=== PATIENT | male | born 1940 | race Caucasian/White ===

== ENCOUNTER 2023-03-29 12:56 | Inpatient (IN) | payer MEDICARE, BC ==
[~2023-03-29] VITALS: Ht 172.7 cm; Wt 70.8 kg
[2023-03-29] MEDS ORDERED: ESCI20TA PO (13:14)
[2023-03-29] MEDS ORDERED: CARV12.52 PO (13:14)
[2023-03-29] MEDS ORDERED: L. A1TAB16 PO (13:14)
[2023-03-29] MEDS ORDERED: ASPI81TA31 PO (13:14)
[2023-03-29] MEDS ORDERED: ACET-73 PO ×2 (13:14→13:42)
[2023-03-29] MEDS ORDERED: EMPA10TA PO (13:14)
[2023-03-29] MEDS ORDERED: CLOP75TA15 PO (13:14)
[2023-03-29] MEDS ORDERED: SITA50TA PO (13:14)
[2023-03-29] MEDS ORDERED: BUSP10TA3 PO (13:14)
[2023-03-29] MEDS ORDERED: AMLO-212 PO (13:14)
[2023-03-29] MEDS ORDERED: BICA50TA49 PO (13:14)
[2023-03-29] MEDS ORDERED: MULT-981 PO (13:14)
[2023-03-29] MEDS ORDERED: EZET10TA15 PO (13:14)
[2023-03-29] MEDS: HYDROMORPHONE 1 MG/1 ML DISP.SYRIN IV ONE (13:15)
[2023-03-29] MEDS ORDERED: ONDANSETRON 4 MG/2 ML VIAL IV ONE (13:15)
[2023-03-29 13:26] LABS: BASOPHILS # (AUTO) 0.1 K/UL (0.0-0.2); BASOPHILS % (AUTO) 1.4 % (0.0-2.0); EOSINOPHILS # (AUTO) 0.5 K/uL (0.0-0.7); EOSINOPHILS % (AUTO) 9.3 % (0.0-7.0); HEMATOCRIT 31.3 % (36.7-47.1); HEMOGLOBIN 10.5 g/dL (12.5-16.3); LYMPHOCYTES % (AUTO) 17.1 % (20.5-51.5); MEAN CORPUSCULAR HEMOGLOBIN 28.7 uug (23.8-33.4); MEAN CORPUSCULAR HGB CONC 33 g/dL (32.5-36.3); MONOCYTES # (AUTO) 0.5 K/uL (0.1-1.30); MONOCYTES % (AUTO) 8.4 % (0.0-11.0); NEUTROPHILS # (AUTO) 3.5 K/uL (1.8-8.9); NEUTROPHILS % (AUTO) 63.8 % (38.5-71.5); PLATELET COUNT (AUTO) 239 K/uL (152-348); RED BLOOD CELL COUNT(AUTO) 3.64 MIL/uL (4.06-5.63); RED CELL DISTRIBUTION WIDTH 14.6 % (12.1-16.2); WHITE BLOOD COUNT (AUTO) 5.6 K/uL (3.6-10.2)
[2023-03-29] MEDS ORDERED: ONDANSETRON 4 MG/2 ML VIAL ONE (13:28)
[2023-03-29] MEDS ORDERED: HYDROMORPHONE 1 MG/1 ML DISP.SYRIN ONE (13:28)
[2023-03-29 13:40] LABS: CARBON DIOXIDE 20 mmol/L (21-32); CHLORIDE 103 mmol/L (98-107); GLUCOSE 126 mg/dL (74-106); POTASSIUM 5.6 mmol/L (3.5-5.1); SODIUM SERUM 138 mmol/L (136-145); UREA NITROGEN, BLOOD 54 mg/dL (7-18)
[2023-03-29] MEDS ORDERED: MELA3CAP2 PO (13:42)
[2023-03-29] MEDS ORDERED: LISI10TA29 PO (13:42)
[2023-03-29] MEDS ORDERED: HYDR-3972 PO (13:42)
[2023-03-29] MEDS ORDERED: METF-442 PO (13:42)
[2023-03-29] MEDS ORDERED: ROSU20TA2 PO (13:42)
[2023-03-29] MEDS ORDERED: HYDR30OI12 TP (13:42)
[2023-03-29] MEDS ORDERED: OXYB15TA19 PO (13:42)
[2023-03-29] MEDS ORDERED: ONDA4TAB11 PO (13:42)
[2023-03-29] MEDS ORDERED: ASCO500C18 PO (13:42)
[2023-03-29] MEDS ORDERED: TRAZ-182 PO (13:42)
[2023-03-29] MEDS ORDERED: ZINC1CAP2 PO (13:42)
[2023-03-29] MEDS ORDERED: TRAZ-257 PO (13:42)
[2023-03-29] MEDS ORDERED: CYCL5TAB PO (13:42)
[2023-03-29] MEDS ORDERED: TAMS-3 PO (13:42)
[2023-03-29] MEDS ORDERED: POLY250017 PO (13:42)
[2023-03-29] MEDS ORDERED: IPRA0.2S48 NEB (13:42)
[2023-03-29] MEDS ORDERED: QUET25TA PO (13:42)
[2023-03-29 13:49] LABS: ALANINE AMINOTRANSFERASE 25 U/L (16-63); ALBUMIN 3.8 g/dL (3.4-5.0); ALKALINE PHOSPHATASE 116 U/L (50-136); ASPARTATE AMINOTRANSFERASE 13 U/L (15-37); BILIRUBIN,DIRECT 0.1 mg/dL (0.0-0.2); BILIRUBIN,TOTAL 0.2 mg/dL (0.2-1.0); LIPASE 24 U/L (16-77); TOTAL PROTEIN, SERUM 7.4 g/dL (6.4-8.2)
[2023-03-29] MEDS ORDERED: SODIUM POLYSTYRENE SULFONATE 15 G/60 ML LIQUID UDC PO ONE (14:15)
[2023-03-29] MEDS ORDERED: ALBUTEROL SULFATE 2.5 MG/3 ML NEBU NEB ONE (14:15)
[2023-03-29] MEDS ORDERED: DEXTROSE 50% 50 ML DISP.SYRIN IV ONE (14:15)
[2023-03-29] MEDS ORDERED: SODIUM BICARBONATE 8.4% 50 MEQ/50 ML DISP.SYRIN IV ONE ×2 (14:15→23:23)
[2023-03-29] MEDS ORDERED: INSULIN REGULAR, HUMAN 300 UNIT/3 ML VIAL IV ONE (14:15)
[2023-03-29] MEDS ORDERED: ALBUTEROL SULFATE 2.5 MG/3 ML NEBU ONE (14:18)
[2023-03-29 14:26] VITALS: O2SAT 96
[2023-03-29 15:29] VITALS: O2SAT 99
[2023-03-29] MEDS ORDERED: ONDANSETRON 4 MG/2 ML VIAL IV PRN (16:00)
[2023-03-29] MEDS ORDERED: ACETAMINOPHEN 325 MG TABLET PO PRN (16:00)
[2023-03-29] MEDS ORDERED: MORPHINE SULFATE 2 MG/1 ML DISP.SYRIN IV PRN (16:00)
[2023-03-29] MEDS ORDERED: IV NS 1000 ML 1,000 ML IV PRN (16:00)
[2023-03-29 16:07] LABS: CALCIUM 9.6 mg/dL (8.5-10.1); CARBON DIOXIDE 20 mmol/L (21-32); CHLORIDE 104 mmol/L (98-107); GLUCOSE 126 mg/dL (74-106); POTASSIUM 5.7 mmol/L (3.5-5.1); SODIUM SERUM 138 mmol/L (136-145); UREA NITROGEN, BLOOD 52 mg/dL (7-18)
[2023-03-29] MEDS ORDERED: HYDROMORPHONE 1 MG/1 ML DISP.SYRIN IV ONE (16:15)
[2023-03-29] MEDS ORDERED: diphenhydrAMINE 50 MG/1 ML VIAL IV ONE (16:15)
[2023-03-29] MEDS ORDERED: MORPHINE SULFATE 2 MG/1 ML DISP.SYRIN ONE (16:55)
[2023-03-29] MEDS ORDERED: DEXTROSE 50% 50 ML DISP.SYRIN IV PRN (17:30)
[2023-03-29] MEDS ORDERED: SODIUM BICARBONATE 8.4% 100 MEQ in IV D5 1/2 NS 1000 ML 1,000 ML IV PRN ×2 (17:30→23:00)
[2023-03-29 17:40] VITALS: BP 141/40; TEMP 98.2; O2SAT 98
[2023-03-29 18:21] LABS: CALCIUM 9.5 mg/dL (8.5-10.1); CARBON DIOXIDE 17 mmol/L (21-32); CHLORIDE 105 mmol/L (98-107); CREATININE 2.9 mg/dL (0.6-1.3); GLUCOSE 131 mg/dL (74-106); POTASSIUM 5.3 mmol/L (3.5-5.1); SODIUM SERUM 138 mmol/L (136-145); UREA NITROGEN, BLOOD 51 mg/dL (7-18)
[2023-03-29] MEDS: HYDROCODONE/APAP 5-325MG TABLET PO PRN ×2 (18:38→23:05)
[2023-03-29 18:53] VITALS: BP 140/71; TEMP 98.2
[2023-03-29 20:00] VITALS: BP 137/47; TEMP 97.7; O2SAT 97
[2023-03-29] MEDS: HEPARIN SODIUM,PORCINE 5,000 UNITS/ML VIAL SQ SCH (21:23)
[2023-03-29] MEDS: DOCUSATE SODIUM 250 MG CAPSULE PO SCH (21:23)
[2023-03-29] MEDS: BLOOD SUGAR DIAGNOSTIC 1 EACH STRIP VI SCH (21:35)
[2023-03-29] MEDS: INSULIN REGULAR, HUMAN 300 UNIT/3 ML VIAL SQ PRN (21:36)
[2023-03-29] MEDS ORDERED: TRAZODONE 50 MG TABLET PO SCH (22:15)
[2023-03-29] MEDS ORDERED: busPIRone 10 MG TABLET PO SCH (22:15)
[2023-03-29] MEDS: MELATONIN 3 MG TABLET PO SCH (22:19)
[2023-03-29 23:40] LABS: *BILIRUBIN,URIN NEGATIVE (NEGATIVE); *BLOOD, URINE NEGATIVE (NEGATIVE); *CLARITY,URINE CLEAR (CLEAR); *COLOR,URINE YELLOW (YELLOW); *KETONES,URINE 1+ (NEGATIVE); *PROTEIN,URINE NEGATIVE (NEGATIVE); *UROBILINOGEN,URINE 0.2 E.U./dl (NORMAL); LEUKOCYTE ESTERASE ,URINE NEGATIVE (NEGATIVE); NITRITE, URINE NEGATIVE (NEGATIVE); PH,URINE 5.5 (5.0-8.0)
[2023-03-29 23:46] LABS: *CREATININE,URINE 86.7 mg/dL (30-125); *URINE TOTAL PROTEIN RANDOM 29.2 mg/dL (<150/24HR)
[2023-03-29 23:48] LABS: UGLUCOSE 3+ (NEGATIVE)
[2023-03-30] VITALS (7 sets, daily range): BP systolic 106–135; BP diastolic 42–57; TEMP 97.7–98.5; O2SAT 93–100
[2023-03-30 01:17] LABS: BACTERIA,URINE FEW /HPF (NONE SEEN); RBC,URINE NONE SEEN /HPF (0-3); SQUAMOUS EPITHELIAL CELL,UR FEW /HPF (NONE SEEN); WBC,URINE NONE SEEN /HPF (0-3)
[2023-03-30] MEDS: BLOOD SUGAR DIAGNOSTIC 1 EACH STRIP VI SCH ×4 (06:35→21:15)
[2023-03-30 06:42] LABS: BASOPHILS # (AUTO) 0.1 K/UL (0.0-0.2); BASOPHILS % (AUTO) 1.4 % (0.0-2.0); EOSINOPHILS # (AUTO) 0.4 K/uL (0.0-0.7); EOSINOPHILS % (AUTO) 8.8 % (0.0-7.0); HEMATOCRIT 27.6 % (36.7-47.1); HEMOGLOBIN 9.3 g/dL (12.5-16.3); LYMPHOCYTES % (AUTO) 21.8 % (20.5-51.5); MEAN CORPUSCULAR HGB CONC 34 g/dL (32.5-36.3); MEAN CORPUSCULAR VOLUME 85.6 fL (73.0-96.2); MONOCYTES # (AUTO) 0.5 K/uL (0.1-1.30); MONOCYTES % (AUTO) 11.5 % (0.0-11.0); NEUTROPHILS # (AUTO) 2.5 K/uL (1.8-8.9); NEUTROPHILS % (AUTO) 56.5 % (38.5-71.5); PLATELET COUNT (AUTO) 214 K/uL (152-348); RED BLOOD CELL COUNT(AUTO) 3.22 MIL/uL (4.06-5.63); RED CELL DISTRIBUTION WIDTH 14.5 % (12.1-16.2); WHITE BLOOD COUNT (AUTO) 4.4 K/uL (3.6-10.2)
[2023-03-30 06:49] LABS: DIFFERENTIAL COMMENT 1
[2023-03-30 07:13] LABS: ALANINE AMINOTRANSFERASE 21 U/L (16-63); ALBUMIN 3.2 g/dL (3.4-5.0); ALKALINE PHOSPHATASE 97 U/L (50-136); ASPARTATE AMINOTRANSFERASE 14 U/L (15-37); BILIRUBIN,TOTAL 0.2 mg/dL (0.2-1.0); CARBON DIOXIDE 23 mmol/L (21-32); CHLORIDE 106 mmol/L (98-107); CHOLESTEROL 81 mg/dL (<200); CREATININE 2.8 mg/dL (0.6-1.3); GLUCOSE 154 mg/dL (74-106); HDL CHOLESTEROL 35 mg/dL (40-60); MAGNESIUM 2.4 mg/dL (1.8-2.4); PHOSPHOROUS 5.2 mg/dL (2.5-4.9); POTASSIUM 5.1 mmol/L (3.5-5.1); SODIUM SERUM 140 mmol/L (136-145); TOTAL PROTEIN, SERUM 6.6 g/dL (6.4-8.2); TRIGLYCERIDES 190 MG/DL (30-150); UREA NITROGEN, BLOOD 49 mg/dL (7-18)
[2023-03-30 07:29] LABS: CREATINE KINASE, TOTAL 67 U/L (39-308)
[2023-03-30] MEDS: IPRATROPIUM BROMIDE 0.5 MG/2.5 ML NEBU NEB SCH ×3 (07:30→20:40)
[2023-03-30] MEDS: CARVEDILOL 12.5 MG TABLET PO SCH ×2 (08:00→17:27)
[2023-03-30] MEDS: HYDROCODONE/APAP 5-325MG TABLET PO PRN ×5 (08:44→23:43)
[2023-03-30] MEDS ORDERED: busPIRone 10 MG TABLET PO SCH (09:00)
[2023-03-30] MEDS ORDERED: busPIRone 10 MG TABLET PO ONE (09:00)
[2023-03-30] MEDS ORDERED: TRAZODONE 50 MG TABLET PO SCH (09:00)
[2023-03-30] MEDS: AMLODIPINE 5 MG TABLET PO SCH (09:00)
[2023-03-30] MEDS: LISINOPRIL 10 MG TABLET PO SCH (09:00)
[2023-03-30] MEDS: ASPIRIN 81 MG TAB.CHEW PO SCH (09:11)
[2023-03-30] MEDS: EZETIMIBE 10 MG TABLET PO SCH (09:12)
[2023-03-30] MEDS: MULTIVIT, IRON, MIN NO. 8, FA TABLET PO SCH (09:12)
[2023-03-30] MEDS: ESCITALOPRAM OXALATE 10 MG TABLET PO SCH (09:12)
[2023-03-30] MEDS: CLOPIDOGREL 75 MG TABLET PO SCH (09:13)
[2023-03-30] MEDS: HEPARIN SODIUM,PORCINE 5,000 UNITS/ML VIAL SQ SCH ×2 (09:14→21:10)
[2023-03-30] MEDS: ASCORBIC ACID 500 MG TABLET PO SCH (09:17)
[2023-03-30] MEDS: BICALUTAMIDE 50 MG TABLET PO SCH (09:22)
[2023-03-30] MEDS ORDERED: TRAZ-257 PO (10:31)
[2023-03-30] MEDS: ZINC SULFATE 220 MG CAPSULE PO SCH (11:00)
[2023-03-30] MEDS: OXYBUTYNIN XL 5 MG TABSR PO SCH (12:33)
[2023-03-30] MEDS: busPIRone 10 MG TABLET PO SCH ×2 (12:33→16:10)
[2023-03-30] MEDS: TRAZODONE 100 MG TABLET PO SCH ×2 (12:34→16:09)
[2023-03-30] MEDS: IV NS 1000 ML 1,000 ML IV PRN (12:34)
[2023-03-30] MEDS: INSULIN REGULAR, HUMAN 300 UNIT/3 ML VIAL SQ PRN ×2 (12:36→21:16)
[2023-03-30] MEDS ORDERED: MELATONIN 3 MG TABLET PO SCH (21:00)
[2023-03-30] MEDS: TAMSULOSIN HCL 0.4 MG CAP.SR.24H PO SCH (21:06)
[2023-03-30] MEDS: DOCUSATE SODIUM 250 MG CAPSULE PO SCH (21:06)
[2023-03-30] MEDS: ATORVASTATIN 20 MG TABLET PO SCH (21:06)
[2023-03-30] MEDS: MELATONIN 3 MG TABLET PO SCH (21:07)
[2023-03-31 00:12] VITALS: BP 117/36; TEMP 98; O2SAT 94
[2023-03-31] MEDS: IPRATROPIUM BROMIDE 0.5 MG/2.5 ML NEBU NEB SCH ×4 (01:30→19:30)
[2023-03-31 04:10] VITALS: BP 154/66; TEMP 97.8; O2SAT 97
[2023-03-31 06:26] LABS: BASOPHILS # (AUTO) 0.1 K/UL (0.0-0.2); BASOPHILS % (AUTO) 1.4 % (0.0-2.0); EOSINOPHILS # (AUTO) 0.3 K/uL (0.0-0.7); EOSINOPHILS % (AUTO) 8.7 % (0.0-7.0); HEMATOCRIT 27.5 % (36.7-47.1); HEMOGLOBIN 9.2 g/dL (12.5-16.3); LYMPHOCYTES % (AUTO) 25.8 % (20.5-51.5); MEAN CORPUSCULAR HEMOGLOBIN 28.9 uug (23.8-33.4); MEAN CORPUSCULAR HGB CONC 34 g/dL (32.5-36.3); MEAN CORPUSCULAR VOLUME 86.2 fL (73.0-96.2); MONOCYTES # (AUTO) 0.5 K/uL (0.1-1.30); MONOCYTES % (AUTO) 13.2 % (0.0-11.0); NEUTROPHILS % (AUTO) 50.9 % (38.5-71.5); PLATELET COUNT (AUTO) 214 K/uL (152-348); RED BLOOD CELL COUNT(AUTO) 3.19 MIL/uL (4.06-5.63); RED CELL DISTRIBUTION WIDTH 14.4 % (12.1-16.2); WHITE BLOOD COUNT (AUTO) 3.9 K/uL (3.6-10.2)
[2023-03-31 06:27] LABS: DIFFERENTIAL COMMENT 1
[2023-03-31] MEDS: BLOOD SUGAR DIAGNOSTIC 1 EACH STRIP VI SCH ×4 (06:33→20:37)
[2023-03-31 06:37] LABS: CALCIUM 9.6 mg/dL (8.5-10.1); CARBON DIOXIDE 23 mmol/L (21-32); CHLORIDE 107 mmol/L (98-107); CREATININE 2.1 mg/dL (0.6-1.3); GLUCOSE 116 mg/dL (74-106); MAGNESIUM 2.3 mg/dL (1.8-2.4); PHOSPHOROUS 4.9 mg/dL (2.5-4.9); POTASSIUM 4.7 mmol/L (3.5-5.1); SODIUM SERUM 142 mmol/L (136-145); UREA NITROGEN, BLOOD 36 mg/dL (7-18)
[2023-03-31] MEDS: OXYBUTYNIN XL 5 MG TABSR PO SCH (08:42)
[2023-03-31] MEDS: TRAZODONE 100 MG TABLET PO SCH ×2 (08:43→16:29)
[2023-03-31] MEDS: ASCORBIC ACID 500 MG TABLET PO SCH (08:43)
[2023-03-31] MEDS: ESCITALOPRAM OXALATE 10 MG TABLET PO SCH (08:43)
[2023-03-31] MEDS: CLOPIDOGREL 75 MG TABLET PO SCH (08:43)
[2023-03-31] MEDS: EZETIMIBE 10 MG TABLET PO SCH (08:43)
[2023-03-31] MEDS: ZINC SULFATE 220 MG CAPSULE PO SCH (08:43)
[2023-03-31] MEDS: MULTIVIT, IRON, MIN NO. 8, FA TABLET PO SCH (08:43)
[2023-03-31] MEDS: ASPIRIN 81 MG TAB.CHEW PO SCH (08:43)
[2023-03-31] MEDS: LISINOPRIL 10 MG TABLET PO SCH (08:44)
[2023-03-31] MEDS: busPIRone 10 MG TABLET PO SCH ×3 (08:44→16:29)
[2023-03-31] MEDS: AMLODIPINE 5 MG TABLET PO SCH (08:44)
[2023-03-31] MEDS: HEPARIN SODIUM,PORCINE 5,000 UNITS/ML VIAL SQ SCH ×2 (08:45→20:27)
[2023-03-31] MEDS: CARVEDILOL 12.5 MG TABLET PO SCH ×2 (08:45→17:01)
[2023-03-31] MEDS: BICALUTAMIDE 50 MG TABLET PO SCH (08:48)
[2023-03-31] MEDS: HYDROCODONE/APAP 5-325MG TABLET PO PRN ×4 (09:53→22:39)
[2023-03-31 11:53] VITALS: BP 131/87; TEMP 97.6; O2SAT 99
[2023-03-31] MEDS: INSULIN REGULAR, HUMAN 300 UNIT/3 ML VIAL SQ PRN ×3 (12:21→20:38)
[2023-03-31] MEDS: IV NS 1000 ML 1,000 ML IV PRN (15:49)
[2023-03-31 16:38] VITALS: BP 110/48; TEMP 98; O2SAT 99
[2023-03-31 20:16] VITALS: BP 106/53; TEMP 98.7; O2SAT 95
[2023-03-31 20:21] VITALS: O2SAT 98
[2023-03-31] MEDS: ATORVASTATIN 20 MG TABLET PO SCH (20:26)
[2023-03-31] MEDS: TAMSULOSIN HCL 0.4 MG CAP.SR.24H PO SCH (20:26)
[2023-03-31] MEDS: MELATONIN 3 MG TABLET PO SCH (20:28)
[2023-03-31] MEDS: DOCUSATE SODIUM 250 MG CAPSULE PO SCH (20:54)
[2023-04-01 00:02] VITALS: BP 117/44; TEMP 97.6; O2SAT 95
[2023-04-01 01:03] VITALS: O2SAT 98
[2023-04-01] MEDS: IPRATROPIUM BROMIDE 0.5 MG/2.5 ML NEBU NEB SCH ×3 (01:30→13:30)
[2023-04-01 04:19] VITALS: BP 135/63; TEMP 97.6; O2SAT 93
[2023-04-01] MEDS: HYDROCODONE/APAP 5-325MG TABLET PO PRN ×3 (06:41→16:31)
[2023-04-01] MEDS: BLOOD SUGAR DIAGNOSTIC 1 EACH STRIP VI SCH ×3 (06:42→16:23)
[2023-04-01 07:08] LABS: BASOPHILS # (AUTO) 0.1 K/UL (0.0-0.2); BASOPHILS % (AUTO) 1.4 % (0.0-2.0); EOSINOPHILS # (AUTO) 0.3 K/uL (0.0-0.7); EOSINOPHILS % (AUTO) 6.5 % (0.0-7.0); HEMATOCRIT 27.1 % (36.7-47.1); HEMOGLOBIN 9.1 g/dL (12.5-16.3); LYMPHOCYTES # (AUTO) 1.2 K/uL (0.8-4.8); LYMPHOCYTES % (AUTO) 27.8 % (20.5-51.5); MEAN CORPUSCULAR HGB CONC 34 g/dL (32.5-36.3); MEAN CORPUSCULAR VOLUME 86.2 fL (73.0-96.2); MONOCYTES # (AUTO) 0.5 K/uL (0.1-1.30); MONOCYTES % (AUTO) 11.8 % (0.0-11.0); NEUTROPHILS # (AUTO) 2.2 K/uL (1.8-8.9); NEUTROPHILS % (AUTO) 52.5 % (38.5-71.5); PLATELET COUNT (AUTO) 220 K/uL (152-348); RED BLOOD CELL COUNT(AUTO) 3.14 MIL/uL (4.06-5.63); RED CELL DISTRIBUTION WIDTH 14.8 % (12.1-16.2); WHITE BLOOD COUNT (AUTO) 4.2 K/uL (3.6-10.2)
[2023-04-01 07:19] LABS: DIFFERENTIAL COMMENT 1
[2023-04-01 07:30] LABS: ALANINE AMINOTRANSFERASE 23 U/L (16-63); ALBUMIN 3.1 g/dL (3.4-5.0); ALKALINE PHOSPHATASE 96 U/L (50-136); ASPARTATE AMINOTRANSFERASE 18 U/L (15-37); BILIRUBIN,TOTAL 0.2 mg/dL (0.2-1.0); CALCIUM 9.4 mg/dL (8.5-10.1); CARBON DIOXIDE 24 mmol/L (21-32); CHLORIDE 108 mmol/L (98-107); CREATININE 2.1 mg/dL (0.6-1.3); GLUCOSE 154 mg/dL (74-106); MAGNESIUM 2.1 mg/dL (1.8-2.4); PHOSPHOROUS 4.5 mg/dL (2.5-4.9); POTASSIUM 4.5 mmol/L (3.5-5.1); SODIUM SERUM 141 mmol/L (136-145); TOTAL PROTEIN, SERUM 6.5 g/dL (6.4-8.2); UREA NITROGEN, BLOOD 27 mg/dL (7-18)
[2023-04-01] MEDS: INSULIN REGULAR, HUMAN 300 UNIT/3 ML VIAL SQ PRN ×3 (08:14→16:31)
[2023-04-01] MEDS: EZETIMIBE 10 MG TABLET PO SCH (08:34)
[2023-04-01] MEDS: ESCITALOPRAM OXALATE 10 MG TABLET PO SCH (08:34)
[2023-04-01] MEDS: ASCORBIC ACID 500 MG TABLET PO SCH (08:34)
[2023-04-01] MEDS: ASPIRIN 81 MG TAB.CHEW PO SCH (08:34)
[2023-04-01] MEDS: CLOPIDOGREL 75 MG TABLET PO SCH (08:34)
[2023-04-01] MEDS: ZINC SULFATE 220 MG CAPSULE PO SCH (08:34)
[2023-04-01] MEDS: busPIRone 10 MG TABLET PO SCH ×3 (08:34→16:31)
[2023-04-01] MEDS: MULTIVIT, IRON, MIN NO. 8, FA TABLET PO SCH (08:34)
[2023-04-01] MEDS: OXYBUTYNIN XL 5 MG TABSR PO SCH (08:34)
[2023-04-01] MEDS: CARVEDILOL 12.5 MG TABLET PO SCH ×2 (08:35→17:39)
[2023-04-01] MEDS: TRAZODONE 100 MG TABLET PO SCH ×2 (08:35→16:31)
[2023-04-01] MEDS: LISINOPRIL 10 MG TABLET PO SCH (08:35)
[2023-04-01] MEDS: AMLODIPINE 5 MG TABLET PO SCH (08:36)
[2023-04-01] MEDS: BICALUTAMIDE 50 MG TABLET PO SCH (08:45)
[2023-04-01] MEDS: HEPARIN SODIUM,PORCINE 5,000 UNITS/ML VIAL SQ SCH (08:47)
[2023-04-01] MEDS ORDERED: LACTULOSE 20 G/30 ML LIQUID UDC PO ONE (11:00)
[2023-04-01] MEDS ORDERED: DOCUSATE SODIUM 100 MG CAPSULE PO SCH (11:00)
[2023-04-01 11:15] VITALS: BP 113/49; TEMP 98; O2SAT 98
[2023-04-01 13:06] LABS: A/G RATIO 0.8 (0.7-1.7); ALBUMIN 2.7 g/dL (2.9-4.4); ALPHA-1-GLOBULIN 0.2 g/dL (0.0-0.4); BETA GLOBULIN 0.9 g/dL (0.7-1.3); GAMMA GLOBULIN 1.4 g/dL (0.4-1.8); GLOBULIN, TOTAL 3.5 g/dL (2.2-3.9); M-SPIKE Not Observed g/dL (Not Observed)
[2023-04-01 15:52] VITALS: BP 112/53; TEMP 98.1
[2023-04-01 16:06] LABS: PTH, INTACT 25 pg/mL (15-65)
[2023-04-01 17:39] VITALS: BP 115/61
[2023-04-01] MEDS: IV NS 1000 ML 1,000 ML IV PRN (17:39)
[2023-04-01] MEDS ORDERED: ATOR20TA PO (20:57)
[2023-04-01] MEDS ORDERED: NORM50IV2 IV (20:57)
[2023-04-01] MEDS ORDERED: INSU100V28 SQ (20:57)
[2023-04-01] MEDS ORDERED: HEPA50007 SQ (20:57)
[2023-04-01] MEDS ORDERED: DOCU100T2 PO (20:57)
[2023-04-01] MEDS ORDERED: MORP2VIA INJ (21:07)
[2023-04-02] MEDS ORDERED: OXYB5TAB29 PO (05:34)
[2023-04-02] MEDS ORDERED: MULT-1075 PO (05:34)
[2023-04-02] MEDS ORDERED: ONDA4TAB5 IV (05:34)
[2023-04-02] MEDS ORDERED: INSU100V28 SQ (05:34)
[2023-04-02] MEDS ORDERED: MORP10SY2 INJ (05:34)
[2023-04-02] MEDS ORDERED: MELA1TAB27 PO (13:23)
[2023-04-02] MEDS ORDERED: ACET-73 PO ×2 (13:23)
[2023-04-02] MEDS ORDERED: TIZA-180 PO (13:23)
[2023-04-02] MEDS ORDERED: IPRA3AMP23 IH (13:23)
[2023-04-02] MEDS ORDERED: SITA50TA PO (14:04)
[2023-04-02] MEDS ORDERED: DIPH35CR TP (14:39)
== END 2023-04-01 18:06 | DRG 682 ==
LOC: ER 12:56 → TELE3 14:20 → MEDSURG3 04-01 07:55
PROVIDERS: ADMIT Nurse Practitioner Acute Care; ATTEND Nurse Practitioner Acute Care
DX: N17.0 Acute kidney failure with tubular necrosis (principal); S72.124A Nondisplaced fracture of lesser trochanter of right femur, initial encounter for closed fracture; E87.20 Acidosis, unspecified; W19.XXXA Unspecified fall, initial encounter; Y92.89 Other specified places as the place of occurrence of the external cause; E11.22 Type 2 diabetes mellitus with diabetic chronic kidney disease; I12.9 Hypertensive chronic kidney disease with stage 1 through stage 4 chronic kidney disease, or unspecified chronic kidney disease; N18.9 Chronic kidney disease, unspecified; Z79.84 Long term (current) use of oral hypoglycemic drugs; Z96.641 Presence of right artificial hip joint; Z85.46 Personal history of malignant neoplasm of prostate; E87.5 Hyperkalemia; E78.5 Hyperlipidemia, unspecified; R00.1 Bradycardia, unspecified; Z79.899 Other long term (current) drug therapy; Z95.5 Presence of coronary angioplasty implant and graft; I25.10 Atherosclerotic heart disease of native coronary artery without angina pectoris; D64.9 Anemia, unspecified; Z74.09 Other reduced mobility; R29.6 Repeated falls; Z79.02 Long term (current) use of antithrombotics/antiplatelets; R53.1 Weakness
CPT/HCPCS: 36415; 71045; 72170; 73502; 76770; 83690; 83735; 83970; 84100; 84155; 84165; 84300; 84484; 85025; 85730; 86850; 86900; 86901; 93005; 93307; G0378; J1170; J1644; J1815; J2270; J2405; J3490; J3590; J7040

== ENCOUNTER 2023-04-01 18:07 | Inpatient (IN) | payer MEDICARE, BC ==
[~2023-04-01] VITALS: Ht 177.8 cm; Wt 70.8 kg
[~2023-04-01 18:07] MED LIST: ACET-73 PO; AMLO-212 PO; ASCO500C18 PO; ASPI81TA31 PO; BICA50TA49 PO; BUSP10TA3 PO; CARV12.52 PO; CLOP75TA15 PO; CYCL5TAB PO; EMPA10TA PO; ESCI20TA PO; EZET10TA15 PO; HYDR-3972 PO; HYDR30OI12 TP; IPRA0.2S48 NEB; L. A1TAB16 PO; LISI10TA29 PO; MELA3CAP2 PO; METF-442 PO; MULT-981 PO; ONDA4TAB11 PO; OXYB15TA19 PO; POLY250017 PO; QUET25TA PO; ROSU20TA2 PO; SITA50TA PO; TAMS-3 PO; TRAZ-257 PO; ZINC1CAP2 PO
[2023-04-01] MEDS ORDERED: REMEDY ESSENTIAL ZINC PASTE 113 GM TOP PRN (19:30)
[2023-04-01] MEDS ORDERED: HEPA50007 SQ (20:57)
[2023-04-01] MEDS ORDERED: INSU100V28 SQ (20:57)
[2023-04-01] MEDS ORDERED: ATOR20TA PO (20:57)
[2023-04-01] MEDS ORDERED: NORM50IV2 IV (20:57)
[2023-04-01] MEDS ORDERED: DOCU100T2 PO (20:57)
[2023-04-01] MEDS ORDERED: MORP2VIA INJ (21:07)
[2023-04-01 21:19] VITALS: BP 101/46; TEMP 98; O2SAT 94
[2023-04-01] MEDS ORDERED: QUETIAPINE FUMARATE 25 MG TABLET PO PRN (22:00)
[2023-04-01] MEDS ORDERED: MELATONIN 3 MG TABLET PO PRN (22:30)
[2023-04-01] MEDS: HYDROCODONE/APAP 5-325MG TABLET PO PRN (23:21)
[2023-04-02] MEDS ORDERED: IPRATROPIUM BROMIDE 0.5 MG/2.5 ML NEBU NEB SCH (01:30)
[2023-04-02 04:30] VITALS: BP 131/56; TEMP 97.9; O2SAT 95
[2023-04-02] MEDS ORDERED: HEPARIN SODIUM,PORCINE/PF 100 UNIT/ML, 5ML SYR XX PRN (04:45)
[2023-04-02] MEDS ORDERED: DEXTROSE 50% 50 ML DISP.SYRIN IV PRN (05:15)
[2023-04-02] MEDS ORDERED: ONDA4TAB5 IV (05:34)
[2023-04-02] MEDS ORDERED: INSU100V28 SQ (05:34)
[2023-04-02] MEDS ORDERED: MORP10SY2 INJ (05:34)
[2023-04-02] MEDS ORDERED: MULT-1075 PO (05:34)
[2023-04-02] MEDS ORDERED: OXYB5TAB29 PO (05:34)
[2023-04-02] MEDS ORDERED: IV NS 1000 ML 1,000 ML IV PRN (05:45)
[2023-04-02] MEDS ORDERED: QUETIAPINE FUMARATE 25 MG TABLET PO PRN (06:00)
[2023-04-02] MEDS: BLOOD SUGAR DIAGNOSTIC 1 EACH STRIP VI SCH ×4 (06:37→20:49)
[2023-04-02] MEDS: IPRATROPIUM BROMIDE 0.5 MG/2.5 ML NEBU NEB SCH ×3 (07:35→19:30)
[2023-04-02 07:50] VITALS: BP 142/51; TEMP 97.4; O2SAT 95
[2023-04-02] MEDS ORDERED: Empagliflozin (Jardiance) 10 MG) PO SCH (09:00)
[2023-04-02] MEDS ORDERED: HEPARIN SODIUM,PORCINE 5,000 UNITS/ML VIAL SQ SCH (09:00)
[2023-04-02] MEDS ORDERED: HYDROCORTISONE 1% OINT 28.35 GM TUBE TP SCH ×2 (09:00)
[2023-04-02] MEDS ORDERED: ESCITALOPRAM OXALATE 10 MG TABLET PO SCH (09:00)
[2023-04-02] MEDS: TRAZODONE 100 MG TABLET PO SCH ×2 (09:11→17:34)
[2023-04-02] MEDS: EZETIMIBE 10 MG TABLET PO SCH (09:11)
[2023-04-02] MEDS: ESCITALOPRAM OXALATE 10 MG TABLET PO SCH (09:11)
[2023-04-02] MEDS: HYDROCODONE/APAP 5-325MG TABLET PO PRN ×4 (09:12→22:01)
[2023-04-02] MEDS: ASPIRIN 81 MG TAB.CHEW PO SCH (09:12)
[2023-04-02] MEDS: AMLODIPINE 5 MG TABLET PO SCH (09:13)
[2023-04-02] MEDS: busPIRone 10 MG TABLET PO SCH ×3 (09:13→17:34)
[2023-04-02] MEDS: CLOPIDOGREL 75 MG TABLET PO SCH (09:13)
[2023-04-02] MEDS: ZINC SULFATE 220 MG CAPSULE PO SCH (09:13)
[2023-04-02] MEDS: ASCORBIC ACID 500 MG TABLET PO SCH (09:13)
[2023-04-02] MEDS: DOCUSATE SODIUM 100 MG CAPSULE PO SCH ×2 (09:13→20:48)
[2023-04-02] MEDS: LINAGLIPTIN 5 MG TABLET PO SCH (09:13)
[2023-04-02] MEDS: BICALUTAMIDE 50 MG TABLET PO SCH (09:23)
[2023-04-02] MEDS: INSULIN REGULAR, HUMAN 300 UNIT/3 ML VIAL SQ PRN ×3 (09:24→20:53)
[2023-04-02] MEDS: LISINOPRIL 10 MG TABLET PO SCH (12:27)
[2023-04-02] MEDS: CARVEDILOL 12.5 MG TABLET PO SCH ×2 (12:30→17:34)
[2023-04-02] MEDS ORDERED: ACET-73 PO ×2 (13:23)
[2023-04-02] MEDS ORDERED: MELA1TAB27 PO (13:23)
[2023-04-02] MEDS ORDERED: IPRA3AMP23 IH (13:23)
[2023-04-02] MEDS ORDERED: TIZA-180 PO (13:23)
[2023-04-02] MEDS ORDERED: SITA50TA PO (14:04)
[2023-04-02 14:20] LABS: *BILIRUBIN,URIN NEGATIVE (NEGATIVE); *BLOOD, URINE 3+ (NEGATIVE); *CLARITY,URINE CLEAR (CLEAR); *COLOR,URINE YELLOW (YELLOW); *KETONES,URINE NEGATIVE (NEGATIVE); *PROTEIN,URINE 1+ (NEGATIVE); *UROBILINOGEN,URINE 0.2 E.U./dl (NORMAL); LEUKOCYTE ESTERASE ,URINE NEGATIVE (NEGATIVE); NITRITE, URINE NEGATIVE (NEGATIVE); PH,URINE 6.5 (5.0-8.0)
[2023-04-02] MEDS ORDERED: DIPH35CR TP (14:39)
[2023-04-02 14:45] LABS: UGLUCOSE 2+ (NEGATIVE)
[2023-04-02 15:00] VITALS: BP 113/54; TEMP 97.2; O2SAT 98
[2023-04-02 15:52] LABS: RBC,URINE 80-100 /HPF (0-3); WBC,URINE 0-3 /HPF (0-3)
[2023-04-02 20:19] VITALS: BP 92/42; TEMP 98.4; O2SAT 94
[2023-04-02] MEDS: TAMSULOSIN HCL 0.4 MG CAP.SR.24H PO SCH (20:48)
[2023-04-02] MEDS ORDERED: ATORVASTATIN 20 MG TABLET PO SCH (21:00)
[2023-04-02] MEDS: MELATONIN 3 MG TABLET PO PRN (22:00)
[2023-04-02 23:00] VITALS: BP 99/41; TEMP 98.2; O2SAT 93
[2023-04-03] MEDS: IPRATROPIUM BROMIDE 0.5 MG/2.5 ML NEBU NEB SCH ×4 (01:30→19:33)
[2023-04-03 05:14] VITALS: BP 111/46; TEMP 97.8; O2SAT 93
[2023-04-03 06:15] LABS: BASOPHILS # (AUTO) 0.1 K/UL (0.0-0.2); BASOPHILS % (AUTO) 1.2 % (0.0-2.0); EOSINOPHILS # (AUTO) 0.3 K/uL (0.0-0.7); HEMATOCRIT 27.1 % (36.7-47.1); HEMOGLOBIN 9.1 g/dL (12.5-16.3); LYMPHOCYTES # (AUTO) 1.1 K/uL (0.8-4.8); LYMPHOCYTES % (AUTO) 20.2 % (20.5-51.5); MEAN CORPUSCULAR HEMOGLOBIN 29.1 uug (23.8-33.4); MEAN CORPUSCULAR HGB CONC 34 g/dL (32.5-36.3); MEAN CORPUSCULAR VOLUME 86.5 fL (73.0-96.2); MONOCYTES # (AUTO) 0.6 K/uL (0.1-1.30); MONOCYTES % (AUTO) 11.1 % (0.0-11.0); NEUTROPHILS # (AUTO) 3.3 K/uL (1.8-8.9); NEUTROPHILS % (AUTO) 61.5 % (38.5-71.5); PLATELET COUNT (AUTO) 216 K/uL (152-348); RED BLOOD CELL COUNT(AUTO) 3.13 MIL/uL (4.06-5.63); RED CELL DISTRIBUTION WIDTH 14.5 % (12.1-16.2); WHITE BLOOD COUNT (AUTO) 5.4 K/uL (3.6-10.2)
[2023-04-03 06:49] LABS: DIFFERENTIAL COMMENT 1
[2023-04-03 07:07] LABS: THYROID STIMULATING HORMONE 0.012 mIU/mL (0.358-3.740)
[2023-04-03] MEDS: BLOOD SUGAR DIAGNOSTIC 1 EACH STRIP VI SCH ×4 (07:25→21:59)
[2023-04-03 07:35] VITALS: BP 148/66; TEMP 97.6; O2SAT 94
[2023-04-03 07:42] LABS: ALANINE AMINOTRANSFERASE 35 U/L (16-63); ALBUMIN 3.1 g/dL (3.4-5.0); ALKALINE PHOSPHATASE 102 U/L (50-136); ASPARTATE AMINOTRANSFERASE 29 U/L (15-37); BILIRUBIN,TOTAL 0.4 mg/dL (0.2-1.0); CALCIUM 9.3 mg/dL (8.5-10.1); CARBON DIOXIDE 23 mmol/L (21-32); CHLORIDE 108 mmol/L (98-107); GLUCOSE 144 mg/dL (74-106); MAGNESIUM 2.1 mg/dL (1.8-2.4); PHOSPHOROUS 4.9 mg/dL (2.5-4.9); POTASSIUM 4.4 mmol/L (3.5-5.1); SODIUM SERUM 141 mmol/L (136-145); TOTAL PROTEIN, SERUM 6.3 g/dL (6.4-8.2); UREA NITROGEN, BLOOD 22 mg/dL (7-18)
[2023-04-03] MEDS: INSULIN REGULAR, HUMAN 300 UNIT/3 ML VIAL SQ PRN ×4 (09:07→22:02)
[2023-04-03] MEDS: BICALUTAMIDE 50 MG TABLET PO SCH (09:08)
[2023-04-03] MEDS: TRAZODONE 100 MG TABLET PO SCH ×2 (09:09→17:15)
[2023-04-03] MEDS: LINAGLIPTIN 5 MG TABLET PO SCH (09:09)
[2023-04-03] MEDS: HYDROCODONE/APAP 5-325MG TABLET PO PRN ×4 (09:09→21:21)
[2023-04-03] MEDS: ASPIRIN 81 MG TAB.CHEW PO SCH (09:09)
[2023-04-03] MEDS: ESCITALOPRAM OXALATE 10 MG TABLET PO SCH (09:09)
[2023-04-03] MEDS: DOCUSATE SODIUM 100 MG CAPSULE PO SCH ×2 (09:09→21:20)
[2023-04-03] MEDS: busPIRone 10 MG TABLET PO SCH ×3 (09:10→17:14)
[2023-04-03] MEDS: ZINC SULFATE 220 MG CAPSULE PO SCH (09:10)
[2023-04-03] MEDS: ASCORBIC ACID 500 MG TABLET PO SCH (09:10)
[2023-04-03] MEDS: CLOPIDOGREL 75 MG TABLET PO SCH (09:10)
[2023-04-03] MEDS: EZETIMIBE 10 MG TABLET PO SCH (09:10)
[2023-04-03] MEDS: AMLODIPINE 5 MG TABLET PO SCH (09:11)
[2023-04-03] MEDS: LISINOPRIL 10 MG TABLET PO SCH (09:11)
[2023-04-03 09:40] LABS: IRON, SERUM 56 ug/dL (50-175)
[2023-04-03] MEDS: CARVEDILOL 12.5 MG TABLET PO SCH ×2 (12:23→17:15)
[2023-04-03 15:15] VITALS: BP 122/56; TEMP 98.4; O2SAT 96
[2023-04-03 20:00] VITALS: BP 109/47; TEMP 97.3; O2SAT 93
[2023-04-03] MEDS: TAMSULOSIN HCL 0.4 MG CAP.SR.24H PO SCH (21:21)
[2023-04-04] MEDS: MELATONIN 3 MG TABLET PO PRN ×2 (00:48→21:57)
[2023-04-04] MEDS: IPRATROPIUM BROMIDE 0.5 MG/2.5 ML NEBU NEB SCH ×4 (01:30→19:30)
[2023-04-04 05:23] VITALS: BP 140/49; TEMP 97.5; O2SAT 94
[2023-04-04] MEDS: BLOOD SUGAR DIAGNOSTIC 1 EACH STRIP VI SCH ×4 (06:57→21:50)
[2023-04-04 07:58] VITALS: BP 129/51; TEMP 97.5; O2SAT 94
[2023-04-04] MEDS: LINAGLIPTIN 5 MG TABLET PO SCH (08:05)
[2023-04-04] MEDS: INSULIN REGULAR, HUMAN 300 UNIT/3 ML VIAL SQ PRN ×3 (08:05→21:53)
[2023-04-04] MEDS: busPIRone 10 MG TABLET PO SCH ×3 (08:06→16:31)
[2023-04-04] MEDS: EZETIMIBE 10 MG TABLET PO SCH (08:06)
[2023-04-04] MEDS: DOCUSATE SODIUM 100 MG CAPSULE PO SCH ×2 (08:06→21:12)
[2023-04-04] MEDS: ASPIRIN 81 MG TAB.CHEW PO SCH (08:06)
[2023-04-04] MEDS: CLOPIDOGREL 75 MG TABLET PO SCH (08:06)
[2023-04-04] MEDS: ASCORBIC ACID 500 MG TABLET PO SCH (08:06)
[2023-04-04] MEDS: AMLODIPINE 5 MG TABLET PO SCH (08:06)
[2023-04-04] MEDS: CARVEDILOL 12.5 MG TABLET PO SCH ×2 (08:06→17:35)
[2023-04-04] MEDS: ESCITALOPRAM OXALATE 10 MG TABLET PO SCH (08:06)
[2023-04-04] MEDS: ZINC SULFATE 220 MG CAPSULE PO SCH (08:06)
[2023-04-04] MEDS: TRAZODONE 100 MG TABLET PO SCH ×2 (08:06→16:31)
[2023-04-04] MEDS: LISINOPRIL 10 MG TABLET PO SCH (08:06)
[2023-04-04] MEDS: BICALUTAMIDE 50 MG TABLET PO SCH (08:08)
[2023-04-04 09:00] VITALS: BP_SYST 109; BP_SYST 91; BP_SYST 92; BP_DIAS 37; BP_DIAS 49; BP_DIAS 51; TEMP 97.9; O2SAT 94
[2023-04-04] MEDS: ONDANSETRON ODT 4 MG TAB.RAPDIS SL PRN (09:36)
[2023-04-04] MEDS: HYDROCODONE/APAP 5-325MG TABLET PO PRN ×2 (13:51→21:17)
[2023-04-04 16:00] VITALS: BP 114/50; TEMP 97.9; O2SAT 97
[2023-04-04] MEDS: ACETAMINOPHEN ES 500 MG TABLET PO PRN (18:28)
[2023-04-04 19:30] VITALS: BP 102/45; TEMP 97.8; O2SAT 94
[2023-04-04] MEDS: TAMSULOSIN HCL 0.4 MG CAP.SR.24H PO SCH (21:12)
[2023-04-05] MEDS: IPRATROPIUM BROMIDE 0.5 MG/2.5 ML NEBU NEB SCH ×4 (01:08→19:30)
[2023-04-05 05:37] VITALS: BP 132/50; TEMP 97.5; O2SAT 94
[2023-04-05] MEDS: BLOOD SUGAR DIAGNOSTIC 1 EACH STRIP VI SCH ×4 (07:04→20:22)
[2023-04-05] MEDS: INSULIN REGULAR, HUMAN 300 UNIT/3 ML VIAL SQ PRN ×3 (07:33→20:27)
[2023-04-05 08:00] VITALS: BP 122/57; TEMP 98.4; O2SAT 97
[2023-04-05] MEDS: BICALUTAMIDE 50 MG TABLET PO SCH (08:02)
[2023-04-05] MEDS: DOCUSATE SODIUM 100 MG CAPSULE PO SCH ×2 (08:03→20:02)
[2023-04-05] MEDS: ESCITALOPRAM OXALATE 10 MG TABLET PO SCH (08:03)
[2023-04-05] MEDS: EZETIMIBE 10 MG TABLET PO SCH (08:03)
[2023-04-05] MEDS: ASCORBIC ACID 500 MG TABLET PO SCH (08:03)
[2023-04-05] MEDS: ASPIRIN 81 MG TAB.CHEW PO SCH (08:03)
[2023-04-05] MEDS: ZINC SULFATE 220 MG CAPSULE PO SCH (08:03)
[2023-04-05] MEDS: LINAGLIPTIN 5 MG TABLET PO SCH (08:04)
[2023-04-05] MEDS: busPIRone 10 MG TABLET PO SCH ×3 (08:04→16:22)
[2023-04-05] MEDS: TRAZODONE 100 MG TABLET PO SCH ×2 (08:05→16:22)
[2023-04-05] MEDS: CLOPIDOGREL 75 MG TABLET PO SCH (08:09)
[2023-04-05] MEDS: CARVEDILOL 12.5 MG TABLET PO SCH ×2 (08:28→17:04)
[2023-04-05] MEDS: ONDANSETRON ODT 4 MG TAB.RAPDIS SL PRN (08:33)
[2023-04-05] MEDS: HYDROCODONE/APAP 5-325MG TABLET PO PRN ×2 (08:33→20:30)
[2023-04-05] MEDS: LISINOPRIL 10 MG TABLET PO SCH (09:00)
[2023-04-05] MEDS: AMLODIPINE 5 MG TABLET PO SCH (09:00)
[2023-04-05 15:54] VITALS: BP 109/45; TEMP 98.2; O2SAT 96
[2023-04-05] MEDS: ACETAMINOPHEN ES 500 MG TABLET PO PRN (16:22)
[2023-04-05 20:00] VITALS: BP 113/52; TEMP 98.2; O2SAT 94
[2023-04-05] MEDS: TAMSULOSIN HCL 0.4 MG CAP.SR.24H PO SCH (20:03)
[2023-04-05] MEDS: MELATONIN 3 MG TABLET PO PRN (21:04)
[2023-04-06] MEDS: IPRATROPIUM BROMIDE 0.5 MG/2.5 ML NEBU NEB SCH ×4 (01:30→19:30)
[2023-04-06 04:32] VITALS: BP 120/55; TEMP 97.3; O2SAT 94
[2023-04-06] MEDS: BLOOD SUGAR DIAGNOSTIC 1 EACH STRIP VI SCH ×4 (06:39→20:30)
[2023-04-06] MEDS: HYDROCODONE/APAP 5-325MG TABLET PO PRN ×3 (07:07→21:31)
[2023-04-06] MEDS: INSULIN REGULAR, HUMAN 300 UNIT/3 ML VIAL SQ PRN ×4 (07:08→20:52)
[2023-04-06 07:53] VITALS: BP 160/62; TEMP 97.6; O2SAT 100
[2023-04-06] MEDS: DOCUSATE SODIUM 100 MG CAPSULE PO SCH ×3 (08:12→21:00)
[2023-04-06] MEDS: LINAGLIPTIN 5 MG TABLET PO SCH (08:12)
[2023-04-06] MEDS: ASCORBIC ACID 500 MG TABLET PO SCH (08:12)
[2023-04-06] MEDS: TRAZODONE 100 MG TABLET PO SCH ×2 (08:12→16:22)
[2023-04-06] MEDS: BICALUTAMIDE 50 MG TABLET PO SCH (08:12)
[2023-04-06] MEDS: busPIRone 10 MG TABLET PO SCH ×3 (08:12→16:22)
[2023-04-06] MEDS: ESCITALOPRAM OXALATE 10 MG TABLET PO SCH (08:12)
[2023-04-06] MEDS: ASPIRIN 81 MG TAB.CHEW PO SCH (08:12)
[2023-04-06] MEDS: ZINC SULFATE 220 MG CAPSULE PO SCH (08:13)
[2023-04-06] MEDS: CLOPIDOGREL 75 MG TABLET PO SCH (08:13)
[2023-04-06] MEDS: CARVEDILOL 3.125 MG TABLET PO SCH ×2 (08:15→20:30)
[2023-04-06 09:00] LABS: *OCCULT BLOOD STOOL NEGATIVE (NEGATIVE)
[2023-04-06] MEDS: ONDANSETRON ODT 4 MG TAB.RAPDIS SL PRN (10:13)
[2023-04-06] MEDS: ACETAMINOPHEN ES 500 MG TABLET PO PRN (12:27)
[2023-04-06 14:46] VITALS: BP 130/52; TEMP 98; O2SAT 94
[2023-04-06 20:03] VITALS: BP 114/57; TEMP 98; O2SAT 93
[2023-04-06] MEDS: TAMSULOSIN HCL 0.4 MG CAP.SR.24H PO SCH (20:29)
[2023-04-06] MEDS: MELATONIN 3 MG TABLET PO PRN (21:32)
[2023-04-07] MEDS: IPRATROPIUM BROMIDE 0.5 MG/2.5 ML NEBU NEB SCH ×4 (01:18→19:22)
[2023-04-07 04:32] VITALS: BP 130/59; TEMP 98; O2SAT 96
[2023-04-07] MEDS: BLOOD SUGAR DIAGNOSTIC 1 EACH STRIP VI SCH ×4 (06:38→20:30)
[2023-04-07 06:59] LABS: BASOPHILS # (AUTO) 0.1 K/UL (0.0-0.2); BASOPHILS % (AUTO) 1.3 % (0.0-2.0); EOSINOPHILS # (AUTO) 0.4 K/uL (0.0-0.7); HEMATOCRIT 28.7 % (36.7-47.1); HEMOGLOBIN 9.6 g/dL (12.5-16.3); LYMPHOCYTES # (AUTO) 1.1 K/uL (0.8-4.8); LYMPHOCYTES % (AUTO) 22.9 % (20.5-51.5); MEAN CORPUSCULAR HEMOGLOBIN 29.1 uug (23.8-33.4); MEAN CORPUSCULAR HGB CONC 34 g/dL (32.5-36.3); MEAN CORPUSCULAR VOLUME 86.9 fL (73.0-96.2); MONOCYTES # (AUTO) 0.6 K/uL (0.1-1.30); MONOCYTES % (AUTO) 13.6 % (0.0-11.0); NEUTROPHILS # (AUTO) 2.6 K/uL (1.8-8.9); NEUTROPHILS % (AUTO) 54.2 % (38.5-71.5); PLATELET COUNT (AUTO) 265 K/uL (152-348); RED CELL DISTRIBUTION WIDTH 15.4 % (12.1-16.2); WHITE BLOOD COUNT (AUTO) 4.7 K/uL (3.6-10.2)
[2023-04-07 07:10] LABS: DIFFERENTIAL COMMENT 1
[2023-04-07 07:31] LABS: ALBUMIN 3.3 g/dL (3.4-5.0); CALCIUM 9.7 mg/dL (8.5-10.1); CARBON DIOXIDE 23 mmol/L (21-32); CHLORIDE 107 mmol/L (98-107); CREATININE 1.7 mg/dL (0.6-1.3); GLUCOSE 165 mg/dL (74-106); POTASSIUM 4.6 mmol/L (3.5-5.1); SODIUM SERUM 141 mmol/L (136-145); UREA NITROGEN, BLOOD 17 mg/dL (7-18)
[2023-04-07 07:59] LABS: ALANINE AMINOTRANSFERASE 33 U/L (16-63); ALKALINE PHOSPHATASE 125 U/L (50-136); ASPARTATE AMINOTRANSFERASE 17 U/L (15-37); BILIRUBIN,TOTAL 0.1 mg/dL (0.2-1.0); PHOSPHOROUS 4.7 mg/dL (2.5-4.9)
[2023-04-07 08:00] VITALS: BP 160/64; TEMP 97.5; O2SAT 98
[2023-04-07] MEDS: CLOPIDOGREL 75 MG TABLET PO SCH (08:27)
[2023-04-07] MEDS: LINAGLIPTIN 5 MG TABLET PO SCH (08:28)
[2023-04-07] MEDS: ASCORBIC ACID 500 MG TABLET PO SCH (08:28)
[2023-04-07] MEDS: TRAZODONE 100 MG TABLET PO SCH ×2 (08:28→16:40)
[2023-04-07] MEDS: ASPIRIN 81 MG TAB.CHEW PO SCH (08:28)
[2023-04-07] MEDS: busPIRone 10 MG TABLET PO SCH ×3 (08:28→16:34)
[2023-04-07] MEDS: INSULIN REGULAR, HUMAN 300 UNIT/3 ML VIAL SQ PRN ×3 (08:28→21:10)
[2023-04-07] MEDS: ZINC SULFATE 220 MG CAPSULE PO SCH (08:28)
[2023-04-07] MEDS: ESCITALOPRAM OXALATE 10 MG TABLET PO SCH (08:29)
[2023-04-07] MEDS: CARVEDILOL 3.125 MG TABLET PO SCH ×2 (08:29→20:49)
[2023-04-07] MEDS: BICALUTAMIDE 50 MG TABLET PO SCH (08:33)
[2023-04-07] MEDS: DOCUSATE SODIUM 100 MG CAPSULE PO SCH ×2 (09:00→20:30)
[2023-04-07] MEDS: ONDANSETRON ODT 4 MG TAB.RAPDIS SL PRN (09:01)
[2023-04-07] MEDS: ACETAMINOPHEN ES 500 MG TABLET PO PRN (13:17)
[2023-04-07 15:27] VITALS: BP 126/61; TEMP 98.5; O2SAT 97
[2023-04-07] MEDS: HYDROCODONE/APAP 5-325MG TABLET PO PRN ×2 (17:32→22:16)
[2023-04-07 20:05] VITALS: BP 131/60; TEMP 98.5; O2SAT 92
[2023-04-07] MEDS: TAMSULOSIN HCL 0.4 MG CAP.SR.24H PO SCH (20:48)
[2023-04-07] MEDS: MELATONIN 3 MG TABLET PO PRN (22:15)
[2023-04-08] MEDS: IPRATROPIUM BROMIDE 0.5 MG/2.5 ML NEBU NEB SCH ×5 (00:37→19:30)
[2023-04-08 04:00] VITALS: BP 143/59; TEMP 97.7; O2SAT 93
[2023-04-08] MEDS: BLOOD SUGAR DIAGNOSTIC 1 EACH STRIP VI SCH ×4 (06:25→20:45)
[2023-04-08 07:38] VITALS: BP 140/63; TEMP 96.9; O2SAT 98
[2023-04-08] MEDS: INSULIN REGULAR, HUMAN 300 UNIT/3 ML VIAL SQ PRN ×3 (08:10→16:14)
[2023-04-08] MEDS: ASPIRIN 81 MG TAB.CHEW PO SCH (08:11)
[2023-04-08] MEDS: TRAZODONE 100 MG TABLET PO SCH ×2 (08:11→16:12)
[2023-04-08] MEDS: busPIRone 10 MG TABLET PO SCH ×3 (08:11→16:12)
[2023-04-08] MEDS: CLOPIDOGREL 75 MG TABLET PO SCH (08:11)
[2023-04-08] MEDS: ASCORBIC ACID 500 MG TABLET PO SCH (08:11)
[2023-04-08] MEDS: LINAGLIPTIN 5 MG TABLET PO SCH (08:11)
[2023-04-08] MEDS: ZINC SULFATE 220 MG CAPSULE PO SCH (08:11)
[2023-04-08] MEDS: CARVEDILOL 3.125 MG TABLET PO SCH ×2 (08:11→20:41)
[2023-04-08] MEDS: BICALUTAMIDE 50 MG TABLET PO SCH (08:15)
[2023-04-08] MEDS: ESCITALOPRAM OXALATE 10 MG TABLET PO SCH (08:16)
[2023-04-08] MEDS: DOCUSATE SODIUM 100 MG CAPSULE PO SCH ×2 (08:16→21:00)
[2023-04-08] MEDS: ONDANSETRON ODT 4 MG TAB.RAPDIS SL PRN (08:52)
[2023-04-08] MEDS: HYDROCODONE/APAP 5-325MG TABLET PO PRN ×3 (08:52→22:17)
[2023-04-08] MEDS: ACETAMINOPHEN ES 500 MG TABLET PO PRN (17:23)
[2023-04-08 20:37] VITALS: BP 128/57; TEMP 97.7; O2SAT 94
[2023-04-08] MEDS: TAMSULOSIN HCL 0.4 MG CAP.SR.24H PO SCH (20:45)
[2023-04-08] MEDS: MELATONIN 3 MG TABLET PO PRN (21:33)
[2023-04-09] MEDS: IPRATROPIUM BROMIDE 0.5 MG/2.5 ML NEBU NEB SCH ×4 (01:30→19:30)
[2023-04-09] MEDS: HYDROCODONE/APAP 5-325MG TABLET PO PRN ×5 (04:36→21:46)
[2023-04-09 05:21] VITALS: BP 135/58; TEMP 97.8; O2SAT 94
[2023-04-09] MEDS: BLOOD SUGAR DIAGNOSTIC 1 EACH STRIP VI SCH ×4 (06:31→20:07)
[2023-04-09 07:32] VITALS: BP 133/71; TEMP 97.8; O2SAT 96
[2023-04-09] MEDS: INSULIN REGULAR, HUMAN 300 UNIT/3 ML VIAL SQ PRN ×3 (09:43→20:09)
[2023-04-09] MEDS: BICALUTAMIDE 50 MG TABLET PO SCH (09:44)
[2023-04-09] MEDS: GLIMEPIRIDE 2 MG TABLET PO SCH (09:45)
[2023-04-09] MEDS: ESCITALOPRAM OXALATE 10 MG TABLET PO SCH (09:45)
[2023-04-09] MEDS: LINAGLIPTIN 5 MG TABLET PO SCH (09:45)
[2023-04-09] MEDS: ASPIRIN 81 MG TAB.CHEW PO SCH (09:45)
[2023-04-09] MEDS: DOCUSATE SODIUM 100 MG CAPSULE PO SCH ×2 (09:46→20:04)
[2023-04-09] MEDS: CARVEDILOL 3.125 MG TABLET PO SCH ×2 (09:46→20:05)
[2023-04-09] MEDS: ZINC SULFATE 220 MG CAPSULE PO SCH (09:46)
[2023-04-09] MEDS: ASCORBIC ACID 500 MG TABLET PO SCH (09:46)
[2023-04-09] MEDS: busPIRone 10 MG TABLET PO SCH ×3 (09:46→17:40)
[2023-04-09] MEDS: TRAZODONE 100 MG TABLET PO SCH ×2 (09:46→17:40)
[2023-04-09] MEDS: CLOPIDOGREL 75 MG TABLET PO SCH (09:46)
[2023-04-09] MEDS: ONDANSETRON ODT 4 MG TAB.RAPDIS SL PRN (09:56)
[2023-04-09 15:56] VITALS: BP 115/53; TEMP 97.8; O2SAT 96
[2023-04-09 20:04] VITALS: BP 126/66; TEMP 98; O2SAT 95
[2023-04-09] MEDS: TAMSULOSIN HCL 0.4 MG CAP.SR.24H PO SCH (20:04)
[2023-04-09] MEDS: MELATONIN 3 MG TABLET PO PRN (21:46)
[2023-04-10] MEDS: IPRATROPIUM BROMIDE 0.5 MG/2.5 ML NEBU NEB SCH ×4 (00:30→19:30)
[2023-04-10 05:19] VITALS: BP 127/63; TEMP 98.2; O2SAT 95
[2023-04-10] MEDS: BLOOD SUGAR DIAGNOSTIC 1 EACH STRIP VI SCH ×4 (06:36→21:04)
[2023-04-10] MEDS: busPIRone 10 MG TABLET PO SCH ×3 (08:55→17:24)
[2023-04-10] MEDS: ASPIRIN 81 MG TAB.CHEW PO SCH (08:55)
[2023-04-10] MEDS: CLOPIDOGREL 75 MG TABLET PO SCH (08:55)
[2023-04-10] MEDS: HYDROCODONE/APAP 5-325MG TABLET PO PRN ×4 (08:55→21:31)
[2023-04-10] MEDS: ZINC SULFATE 220 MG CAPSULE PO SCH (08:55)
[2023-04-10] MEDS: GLIMEPIRIDE 2 MG TABLET PO SCH (08:55)
[2023-04-10] MEDS: ESCITALOPRAM OXALATE 10 MG TABLET PO SCH (08:55)
[2023-04-10] MEDS: LINAGLIPTIN 5 MG TABLET PO SCH (08:55)
[2023-04-10] MEDS: ASCORBIC ACID 500 MG TABLET PO SCH (08:55)
[2023-04-10] MEDS: TRAZODONE 100 MG TABLET PO SCH ×2 (08:56→17:24)
[2023-04-10] MEDS: DOCUSATE SODIUM 100 MG CAPSULE PO SCH ×2 (08:56→21:07)
[2023-04-10] MEDS: INSULIN REGULAR, HUMAN 300 UNIT/3 ML VIAL SQ PRN ×3 (08:58→21:10)
[2023-04-10] MEDS: BICALUTAMIDE 50 MG TABLET PO SCH (08:59)
[2023-04-10] MEDS: CARVEDILOL 3.125 MG TABLET PO SCH ×2 (09:00→21:09)
[2023-04-10] MEDS: ONDANSETRON ODT 4 MG TAB.RAPDIS SL PRN (09:11)
[2023-04-10 16:07] VITALS: BP 108/52; TEMP 97.7; O2SAT 94
[2023-04-10 20:00] VITALS: BP 121/61; TEMP 98.1; O2SAT 98
[2023-04-10] MEDS: TAMSULOSIN HCL 0.4 MG CAP.SR.24H PO SCH (21:07)
[2023-04-10] MEDS: MELATONIN 3 MG TABLET PO PRN (21:31)
[2023-04-11] MEDS: IPRATROPIUM BROMIDE 0.5 MG/2.5 ML NEBU NEB SCH ×4 (00:59→19:30)
[2023-04-11] MEDS: BLOOD SUGAR DIAGNOSTIC 1 EACH STRIP VI SCH ×4 (06:33→20:24)
[2023-04-11 06:41] VITALS: BP 138/62; TEMP 97.5; O2SAT 94
[2023-04-11 07:47] VITALS: BP 137/61; TEMP 97.7; O2SAT 96
[2023-04-11] MEDS: GLIMEPIRIDE 2 MG TABLET PO SCH (08:30)
[2023-04-11] MEDS: CLOPIDOGREL 75 MG TABLET PO SCH (08:31)
[2023-04-11] MEDS: ASCORBIC ACID 500 MG TABLET PO SCH (08:31)
[2023-04-11] MEDS: ASPIRIN 81 MG TAB.CHEW PO SCH (08:31)
[2023-04-11] MEDS: TRAZODONE 100 MG TABLET PO SCH ×2 (08:31→16:57)
[2023-04-11] MEDS: busPIRone 10 MG TABLET PO SCH ×3 (08:31→16:57)
[2023-04-11] MEDS: ESCITALOPRAM OXALATE 10 MG TABLET PO SCH (08:31)
[2023-04-11] MEDS: CARVEDILOL 3.125 MG TABLET PO SCH ×2 (08:31→20:51)
[2023-04-11] MEDS: ONDANSETRON ODT 4 MG TAB.RAPDIS SL PRN (08:32)
[2023-04-11] MEDS: ZINC SULFATE 220 MG CAPSULE PO SCH (08:32)
[2023-04-11] MEDS: LINAGLIPTIN 5 MG TABLET PO SCH (08:32)
[2023-04-11] MEDS: DOCUSATE SODIUM 100 MG CAPSULE PO SCH ×2 (08:32→20:50)
[2023-04-11] MEDS: HYDROCODONE/APAP 5-325MG TABLET PO PRN ×4 (08:32→21:29)
[2023-04-11] MEDS: BICALUTAMIDE 50 MG TABLET PO SCH (08:33)
[2023-04-11] MEDS: INSULIN REGULAR, HUMAN 300 UNIT/3 ML VIAL SQ PRN ×2 (12:30→20:53)
[2023-04-11 16:00] VITALS: BP 170/80; TEMP 97.4; O2SAT 96
[2023-04-11 20:00] VITALS: BP 128/62; TEMP 98.2; O2SAT 96
[2023-04-11] MEDS: TAMSULOSIN HCL 0.4 MG CAP.SR.24H PO SCH (20:52)
[2023-04-11] MEDS: MELATONIN 3 MG TABLET PO PRN (21:30)
[2023-04-12] MEDS: IPRATROPIUM BROMIDE 0.5 MG/2.5 ML NEBU NEB SCH ×4 (01:30→19:52)
[2023-04-12 04:00] VITALS: BP 142/63; TEMP 98; O2SAT 94
[2023-04-12] MEDS: BLOOD SUGAR DIAGNOSTIC 1 EACH STRIP VI SCH ×4 (07:07→20:58)
[2023-04-12] MEDS: busPIRone 10 MG TABLET PO SCH ×3 (08:20→17:09)
[2023-04-12] MEDS: ASPIRIN 81 MG TAB.CHEW PO SCH (08:20)
[2023-04-12] MEDS: LINAGLIPTIN 5 MG TABLET PO SCH (08:20)
[2023-04-12] MEDS: ZINC SULFATE 220 MG CAPSULE PO SCH (08:21)
[2023-04-12] MEDS: GLIMEPIRIDE 2 MG TABLET PO SCH (08:21)
[2023-04-12] MEDS: TRAZODONE 100 MG TABLET PO SCH ×2 (08:21→17:09)
[2023-04-12] MEDS: ESCITALOPRAM OXALATE 10 MG TABLET PO SCH (08:21)
[2023-04-12] MEDS: HYDROCODONE/APAP 5-325MG TABLET PO PRN ×4 (08:21→21:38)
[2023-04-12] MEDS: CARVEDILOL 3.125 MG TABLET PO SCH ×2 (08:21→20:44)
[2023-04-12] MEDS: ASCORBIC ACID 500 MG TABLET PO SCH (08:21)
[2023-04-12] MEDS: DOCUSATE SODIUM 100 MG CAPSULE PO SCH ×2 (08:21→20:57)
[2023-04-12] MEDS: CLOPIDOGREL 75 MG TABLET PO SCH (08:21)
[2023-04-12] MEDS: BICALUTAMIDE 50 MG TABLET PO SCH (08:23)
[2023-04-12] MEDS: INSULIN REGULAR, HUMAN 300 UNIT/3 ML VIAL SQ PRN ×4 (08:23→21:00)
[2023-04-12] MEDS: ONDANSETRON ODT 4 MG TAB.RAPDIS SL PRN (08:26)
[2023-04-12 10:20] VITALS: BP 133/55; TEMP 98; O2SAT 97
[2023-04-12 16:00] VITALS: BP 127/85; TEMP 96.3; O2SAT 98
[2023-04-12 20:00] VITALS: BP 126/56; TEMP 98; O2SAT 95
[2023-04-12] MEDS: TAMSULOSIN HCL 0.4 MG CAP.SR.24H PO SCH (20:58)
[2023-04-12] MEDS: MELATONIN 3 MG TABLET PO PRN (21:41)
[2023-04-13] VITALS (7 sets, daily range): BP systolic 117–178; BP diastolic 57–84; TEMP 96.8–98.3; O2SAT 91–99
[2023-04-13] MEDS ORDERED: hydrALAZINE HCL 25 MG TABLET PO PRN (00:30)
[2023-04-13] MEDS: IPRATROPIUM BROMIDE 0.5 MG/2.5 ML NEBU NEB SCH ×4 (01:21→19:53)
[2023-04-13] MEDS: BLOOD SUGAR DIAGNOSTIC 1 EACH STRIP VI SCH ×4 (06:39→20:21)
[2023-04-13] MEDS: INSULIN REGULAR, HUMAN 300 UNIT/3 ML VIAL SQ PRN ×3 (08:06→16:48)
[2023-04-13] MEDS: GLIMEPIRIDE 2 MG TABLET PO SCH (08:37)
[2023-04-13] MEDS: TRAZODONE 100 MG TABLET PO SCH ×2 (08:37→16:52)
[2023-04-13] MEDS: ZINC SULFATE 220 MG CAPSULE PO SCH (08:37)
[2023-04-13] MEDS: ESCITALOPRAM OXALATE 10 MG TABLET PO SCH (08:37)
[2023-04-13] MEDS: ASPIRIN 81 MG TAB.CHEW PO SCH (08:38)
[2023-04-13] MEDS: CLOPIDOGREL 75 MG TABLET PO SCH (08:38)
[2023-04-13] MEDS: DOCUSATE SODIUM 100 MG CAPSULE PO SCH ×2 (08:38→20:12)
[2023-04-13] MEDS: ASCORBIC ACID 500 MG TABLET PO SCH (08:38)
[2023-04-13] MEDS: LINAGLIPTIN 5 MG TABLET PO SCH (08:38)
[2023-04-13] MEDS: busPIRone 10 MG TABLET PO SCH ×3 (08:38→16:52)
[2023-04-13] MEDS: CARVEDILOL 3.125 MG TABLET PO SCH ×2 (08:46→20:13)
[2023-04-13] MEDS: BICALUTAMIDE 50 MG TABLET PO SCH (08:50)
[2023-04-13] MEDS: ONDANSETRON ODT 4 MG TAB.RAPDIS SL PRN (09:31)
[2023-04-13] MEDS: HYDROCODONE/APAP 5-325MG TABLET PO PRN ×3 (13:57→22:05)
[2023-04-13] MEDS ORDERED: MAGNESIUM HYDROXIDE 30 ML LIQUID UDC PO PRN ×2 (15:15→17:45)
[2023-04-13] MEDS: TAMSULOSIN HCL 0.4 MG CAP.SR.24H PO SCH (20:13)
[2023-04-13] MEDS: MELATONIN 3 MG TABLET PO PRN (22:05)
[2023-04-14] MEDS: IPRATROPIUM BROMIDE 0.5 MG/2.5 ML NEBU NEB SCH ×4 (01:30→19:30)
[2023-04-14 04:16] VITALS: BP 167/69; TEMP 97.5; O2SAT 97
[2023-04-14] MEDS: BLOOD SUGAR DIAGNOSTIC 1 EACH STRIP VI SCH ×4 (06:25→20:46)
[2023-04-14] MEDS: INSULIN REGULAR, HUMAN 300 UNIT/3 ML VIAL SQ PRN ×3 (07:44→16:17)
[2023-04-14 08:00] VITALS: BP 150/68; TEMP 97.7; O2SAT 97
[2023-04-14] MEDS: BICALUTAMIDE 50 MG TABLET PO SCH (08:09)
[2023-04-14] MEDS: LINAGLIPTIN 5 MG TABLET PO SCH (08:09)
[2023-04-14] MEDS: DOCUSATE SODIUM 100 MG CAPSULE PO SCH ×2 (08:09→20:46)
[2023-04-14] MEDS: TRAZODONE 100 MG TABLET PO SCH ×2 (08:10→16:15)
[2023-04-14] MEDS: busPIRone 10 MG TABLET PO SCH ×3 (08:10→16:15)
[2023-04-14] MEDS: CLOPIDOGREL 75 MG TABLET PO SCH (08:10)
[2023-04-14] MEDS: ZINC SULFATE 220 MG CAPSULE PO SCH (08:10)
[2023-04-14] MEDS: CARVEDILOL 3.125 MG TABLET PO SCH ×2 (08:10→20:42)
[2023-04-14] MEDS: GLIMEPIRIDE 2 MG TABLET PO SCH (08:10)
[2023-04-14] MEDS: ASCORBIC ACID 500 MG TABLET PO SCH (08:10)
[2023-04-14] MEDS: ESCITALOPRAM OXALATE 10 MG TABLET PO SCH (08:10)
[2023-04-14] MEDS: ASPIRIN 81 MG TAB.CHEW PO SCH (08:10)
[2023-04-14] MEDS: ONDANSETRON ODT 4 MG TAB.RAPDIS SL PRN (09:09)
[2023-04-14] MEDS: HYDROCODONE/APAP 5-325MG TABLET PO PRN ×3 (13:36→22:32)
[2023-04-14 15:15] VITALS: BP 133/68; TEMP 98.8; O2SAT 96
[2023-04-14 20:00] VITALS: BP 122/61; TEMP 98.1; O2SAT 96
[2023-04-14] MEDS: TAMSULOSIN HCL 0.4 MG CAP.SR.24H PO SCH (20:42)
[2023-04-14] MEDS: MELATONIN 3 MG TABLET PO PRN (22:35)
[2023-04-15 00:30] VITALS: BP 167/83; O2SAT 96
[2023-04-15] MEDS: IPRATROPIUM BROMIDE 0.5 MG/2.5 ML NEBU NEB SCH ×4 (01:30→19:30)
[2023-04-15 01:45] VITALS: BP 127/60; O2SAT 95
[2023-04-15] MEDS ORDERED: hydrALAZINE HCL 25 MG TABLET PO SCH (02:15)
[2023-04-15] MEDS ORDERED: hydrALAZINE HCL 25 MG TABLET PO PRN (06:00)
[2023-04-15] MEDS: BLOOD SUGAR DIAGNOSTIC 1 EACH STRIP VI SCH ×4 (06:29→20:22)
[2023-04-15 06:58] VITALS: BP 157/73; TEMP 98.1; O2SAT 96
[2023-04-15] MEDS: INSULIN REGULAR, HUMAN 300 UNIT/3 ML VIAL SQ PRN ×4 (07:52→20:38)
[2023-04-15] MEDS: BICALUTAMIDE 50 MG TABLET PO SCH (08:02)
[2023-04-15] MEDS: ESCITALOPRAM OXALATE 10 MG TABLET PO SCH (08:02)
[2023-04-15] MEDS: ASPIRIN 81 MG TAB.CHEW PO SCH (08:02)
[2023-04-15] MEDS: ASCORBIC ACID 500 MG TABLET PO SCH (08:03)
[2023-04-15] MEDS: TRAZODONE 100 MG TABLET PO SCH ×2 (08:03→20:15)
[2023-04-15] MEDS: CLOPIDOGREL 75 MG TABLET PO SCH (08:03)
[2023-04-15] MEDS: ZINC SULFATE 220 MG CAPSULE PO SCH (08:03)
[2023-04-15] MEDS: busPIRone 10 MG TABLET PO SCH ×3 (08:03→16:05)
[2023-04-15] MEDS: LINAGLIPTIN 5 MG TABLET PO SCH (08:03)
[2023-04-15] MEDS: GLIMEPIRIDE 2 MG TABLET PO SCH (08:03)
[2023-04-15] MEDS: CARVEDILOL 3.125 MG TABLET PO SCH ×2 (08:03→20:17)
[2023-04-15] MEDS: DOCUSATE SODIUM 100 MG CAPSULE PO SCH ×2 (08:29→20:16)
[2023-04-15 08:32] LABS: BASOPHILS # (AUTO) 0.1 K/UL (0.0-0.2); BASOPHILS % (AUTO) 1.9 % (0.0-2.0); EOSINOPHILS # (AUTO) 0.3 K/uL (0.0-0.7); EOSINOPHILS % (AUTO) 6.5 % (0.0-7.0); HEMATOCRIT 27.1 % (36.7-47.1); HEMOGLOBIN 9.1 g/dL (12.5-16.3); LYMPHOCYTES # (AUTO) 1.2 K/uL (0.8-4.8); MEAN CORPUSCULAR HGB CONC 33 g/dL (32.5-36.3); MEAN CORPUSCULAR VOLUME 86.9 fL (73.0-96.2); MONOCYTES # (AUTO) 0.6 K/uL (0.1-1.30); MONOCYTES % (AUTO) 11.9 % (0.0-11.0); NEUTROPHILS # (AUTO) 2.8 K/uL (1.8-8.9); NEUTROPHILS % (AUTO) 55.7 % (38.5-71.5); PLATELET COUNT (AUTO) 337 K/uL (152-348); RED BLOOD CELL COUNT(AUTO) 3.12 MIL/uL (4.06-5.63); RED CELL DISTRIBUTION WIDTH 15.3 % (12.1-16.2); WHITE BLOOD COUNT (AUTO) 5.1 K/uL (3.6-10.2)
[2023-04-15 08:42] LABS: CALCIUM 9.3 mg/dL (8.5-10.1); CARBON DIOXIDE 26 mmol/L (21-32); CHLORIDE 105 mmol/L (98-107); CREATININE 1.6 mg/dL (0.6-1.3); DIFFERENTIAL COMMENT 1; GLUCOSE 162 mg/dL (74-106); POTASSIUM 4.4 mmol/L (3.5-5.1); SODIUM SERUM 141 mmol/L (136-145); UREA NITROGEN, BLOOD 15 mg/dL (7-18)
[2023-04-15] MEDS: ONDANSETRON ODT 4 MG TAB.RAPDIS SL PRN ×2 (09:11→14:29)
[2023-04-15] MEDS: HYDROCODONE/APAP 5-325MG TABLET PO PRN ×2 (13:56→20:16)
[2023-04-15 15:29] VITALS: BP 120/73; TEMP 98.6; O2SAT 96
[2023-04-15 20:10] VITALS: BP 122/62; TEMP 98.4; O2SAT 94
[2023-04-15] MEDS: TAMSULOSIN HCL 0.4 MG CAP.SR.24H PO SCH (20:39)
[2023-04-15] MEDS: MELATONIN 3 MG TABLET PO PRN (21:51)
[2023-04-16] MEDS: HYDROCODONE/APAP 5-325MG TABLET PO PRN ×4 (01:00→22:08)
[2023-04-16] MEDS: IPRATROPIUM BROMIDE 0.5 MG/2.5 ML NEBU NEB SCH ×4 (01:15→19:30)
[2023-04-16 04:30] VITALS: BP 163/94; TEMP 97.5; O2SAT 96
[2023-04-16] MEDS: BLOOD SUGAR DIAGNOSTIC 1 EACH STRIP VI SCH ×4 (07:13→20:49)
[2023-04-16 08:00] VITALS: BP 147/76; TEMP 97.7; O2SAT 95
[2023-04-16] MEDS: ZINC SULFATE 220 MG CAPSULE PO SCH (08:09)
[2023-04-16] MEDS: ASCORBIC ACID 500 MG TABLET PO SCH (08:09)
[2023-04-16] MEDS: ASPIRIN 81 MG TAB.CHEW PO SCH (08:09)
[2023-04-16] MEDS: CLOPIDOGREL 75 MG TABLET PO SCH (08:09)
[2023-04-16] MEDS: busPIRone 10 MG TABLET PO SCH ×3 (08:09→16:04)
[2023-04-16] MEDS: CARVEDILOL 3.125 MG TABLET PO SCH ×2 (08:10→22:00)
[2023-04-16] MEDS: ESCITALOPRAM OXALATE 10 MG TABLET PO SCH (08:10)
[2023-04-16] MEDS: LINAGLIPTIN 5 MG TABLET PO SCH (08:10)
[2023-04-16] MEDS: GLIMEPIRIDE 2 MG TABLET PO SCH (08:10)
[2023-04-16] MEDS: TRAZODONE 100 MG TABLET PO SCH ×2 (08:10→22:00)
[2023-04-16] MEDS: BICALUTAMIDE 50 MG TABLET PO SCH (08:10)
[2023-04-16] MEDS: DOCUSATE SODIUM 100 MG CAPSULE PO SCH ×2 (08:10→21:00)
[2023-04-16] MEDS: INSULIN REGULAR, HUMAN 300 UNIT/3 ML VIAL SQ PRN ×3 (08:11→16:18)
[2023-04-16 18:18] VITALS: BP 130/70; TEMP 97.6; O2SAT 95
[2023-04-16 20:00] VITALS: BP 125/64; TEMP 98.3; O2SAT 95
[2023-04-16] MEDS: MELATONIN 3 MG TABLET PO PRN (21:59)
[2023-04-16] MEDS: TAMSULOSIN HCL 0.4 MG CAP.SR.24H PO SCH (21:59)
[2023-04-17] MEDS: IPRATROPIUM BROMIDE 0.5 MG/2.5 ML NEBU NEB SCH ×3 (01:30→13:05)
[2023-04-17 04:00] VITALS: BP 118/58; TEMP 97.5; O2SAT 94
[2023-04-17] MEDS: BLOOD SUGAR DIAGNOSTIC 1 EACH STRIP VI SCH ×2 (06:37→11:56)
[2023-04-17] MEDS: ZINC SULFATE 220 MG CAPSULE PO SCH (08:56)
[2023-04-17] MEDS: TRAZODONE 100 MG TABLET PO SCH (08:56)
[2023-04-17] MEDS: GLIMEPIRIDE 2 MG TABLET PO SCH (08:56)
[2023-04-17] MEDS: ASPIRIN 81 MG TAB.CHEW PO SCH (08:56)
[2023-04-17] MEDS: DOCUSATE SODIUM 100 MG CAPSULE PO SCH (08:57)
[2023-04-17] MEDS: ESCITALOPRAM OXALATE 10 MG TABLET PO SCH (08:57)
[2023-04-17] MEDS: LINAGLIPTIN 5 MG TABLET PO SCH (08:57)
[2023-04-17] MEDS: busPIRone 10 MG TABLET PO SCH ×2 (08:57→12:34)
[2023-04-17] MEDS: CLOPIDOGREL 75 MG TABLET PO SCH (08:59)
[2023-04-17 09:02] VITALS: BP 124/50
[2023-04-17] MEDS: CARVEDILOL 3.125 MG TABLET PO SCH (09:02)
[2023-04-17] MEDS: BICALUTAMIDE 50 MG TABLET PO SCH (09:04)
[2023-04-17] MEDS: ASCORBIC ACID 500 MG TABLET PO SCH (09:05)
[2023-04-17] MEDS: ONDANSETRON ODT 4 MG TAB.RAPDIS SL PRN (09:52)
[2023-04-17] MEDS: INSULIN REGULAR, HUMAN 300 UNIT/3 ML VIAL SQ PRN (12:40)
[2023-04-17] MEDS: HYDROCODONE/APAP 5-325MG TABLET PO PRN (12:44)
== END 2023-04-17 16:00 | disposition home health service (06) | DRG 559 ==
PROVIDERS: ADMIT Physical Medicine & Rehabilitation Pain Medicine; ATTEND Physical Medicine & Rehabilitation Pain Medicine
DX: S72.121D Displaced fracture of lesser trochanter of right femur, subsequent encounter for closed fracture with routine healing (principal); N17.0 Acute kidney failure with tubular necrosis; D68.59 Other primary thrombophilia; N17.9 Acute kidney failure, unspecified; W19.XXXD Unspecified fall, subsequent encounter; E11.22 Type 2 diabetes mellitus with diabetic chronic kidney disease; N18.9 Chronic kidney disease, unspecified; I12.9 Hypertensive chronic kidney disease with stage 1 through stage 4 chronic kidney disease, or unspecified chronic kidney disease; I25.10 Atherosclerotic heart disease of native coronary artery without angina pectoris; E78.5 Hyperlipidemia, unspecified; Z95.5 Presence of coronary angioplasty implant and graft; Z85.46 Personal history of malignant neoplasm of prostate; R29.6 Repeated falls; Z91.81 History of falling; E05.20 Thyrotoxicosis with toxic multinodular goiter without thyrotoxic crisis or storm; E11.65 Type 2 diabetes mellitus with hyperglycemia; G89.29 Other chronic pain; R31.29 Other microscopic hematuria; Z96.641 Presence of right artificial hip joint; D63.8 Anemia in other chronic diseases classified elsewhere
CPT/HCPCS: 36415; 83550; 83735; 84100; 84443; 84484; 85025; 93005; 97535-GO-CO; A6209; A9150; J1644; J1815; Q0162